=== PATIENT | male | born 1960 | race Hispanic/Latino ===

== ENCOUNTER 2017-12-08 17:22 | Inpatient (IN) | payer MEDICARE ==
[2017-12-08] MEDS ORDERED: Morphine 4 MG/ML VIAL ONE (18:05)
--- NOTE | 2017-12-08 18:17 | RAD ---
FRONTAL VIEW CHEST: CLINICAL HISTORY: Preoperative assessment. FINDINGS: There is no consolidation, effusion, or pneumothorax. The cardiac silhouette is normal in size. The re is mild osseous degenerative change. IMPRESSION: No focal consolidation. POS: YANELISH
[2017-12-08 18:29] LABS: Hemoglobin 12.5 g/dL (14.0-18.0); Mean Corpuscular HGB CONC 32.7 g/dL (32.0-36.0); Mean Corpuscular Hemoglobin 28.8 pg (27.0-31.0); Mean Corpuscular Volume 88.1 fl (80.0-94.0); Mean Platelet Volume 8.2 fL (7.4-10.4); Platelet Count 431 thou/uL (130-400); RBC Distribution Width 11.5 % (11.5-14.5); Red Blood Cell (RBC) Count 4.35 mill/uL (4.70-6.10); White Blood Cell (WBC) Count 28.9 thou/uL (4.8-10.8)
[2017-12-08 18:37] LABS: Lactic Acid 1.9 mmol/L (0.5-2.2)
[2017-12-08 18:39] LABS: INR-International Normal Ratio 1.3; PTT 34.9 SEC (22.9-36.1); Prothrombin Time 16.5 SEC (12.0-14.7)
[2017-12-08 18:42] LABS: CRP (Inflammatory) 28.4 mg/dL (= or < 0.5)
[2017-12-08 18:43] LABS: ALT (SGPT) 10 U/L (8-55); AST (SGOT) 8 U/L (5-34); Albumin 2.2 g/dL (3.5-5.0); Alkaline Phosphatase 86 U/L (40-150); Anion Gap 14 mmol/L (10-20); BUN (Urea Nitrogen) 23 mg/dL (8.4-25.7); Bilirubin, Total 0.4 mg/dL (0.2-1.2); Calc. Creatinine Clearance 0 mL/min (70-130); Calcium 8.3 mg/dL (7.8-10.44); Carbon Dioxide 19 mmol/L (22-29); Chloride 98 mmol/L (98-107); Estimated GFR-MDRD 48; Globulin 4.8 g/dL (2.4-3.5); Glucose 384 mg/dL (70-105); Sodium 127 mmol/L (136-145)
[2017-12-08 18:48] LABS: Band 11 % (5-11); Large Platelets SLIGHT; Lymphocytes 6 % (21-51); MDiff Complete? YES; Monocytes 4 % (0-10); Neutrophil 79 % (42-75); PLT Morphology Comment Appears Increased; Polychromasia SLIGHT = 2-3 cells (100X) (0-2/hpf)
[2017-12-08] MEDS ORDERED: Insulin Regular 300 UNITS/3 ML VIAL ONE (19:16)
--- NOTE | 2017-12-08 19:25 | CT ---
POST CONTRAST LEFT LOWER EXTREMITY CT: HISTORY: Evaluate for necrotizing fasciitis. Gangrene. COMPARISON: None. TECHNIQUE: Postcontrast soft tissue CT of the left leg and foot is performed. Reformatted images are submitted for interpretation. FINDINGS: Extensive vascular calcification. There is soft tissue swelling and subcutaneous emphysema involving the plantar surface of the left fo ot, at the level of the calcaneus. Edema and air extend into the medial as well as lateral aspect of the hindfoot. The midfoot and forefoot do not demonstrate any obvious drainable fluid collection. There is no abnormal soft tissue emphysema in the distal lower extremity, at the level of the tibia a nd fibula. There is minimal periosteal change involving the calcaneus, at the level of the aforementioned subcut aneous emphysema. No obvious destructive or erosive changes to imply osteomyelitis. The remaining o sseous structures of the left foot are intact. No evidence of periosteal reaction. No evidence of e rosive or destructive changes. No evidence of fracture. IMPRESSION: Subcutaneous emphysema and swelling involving the hindfoot soft tissues, compatible with cellulitis/n ecrotizing fasciitis. No CT evidence of osteomyelitis. POS: PPP
[2017-12-08] MEDS ORDERED: Sodium Chloride 0.9% 1,000 ML IV SCH (20:15)
[2017-12-08] MEDS ORDERED: Vancomycin HCl 500 MG in Sodium Chloride 0.9% 100 ML IVPB SCH (20:30)
[2017-12-08 20:42] LABS: Platelet Count 431 thou/uL (130-400)
[2017-12-08 20:48] LABS: D-Dimer Test 3.28 *mcg/mL (0.27-0.43)
--- NOTE | 2017-12-08 20:49 | PDOC.FPRHP ---
- History of Present Illness Chief Complaint: Left foot wound History of Present Illness: This is a 57 yo M w/hx of DM2, HLD, HTN, and diabetic neuropathy that was transferred to this facility from [place] with concern for necrotizing fasciitis secondary to a L heel diabetic foot ulcer. Per discussion with patient 's he was first evaluated for the would apprx 6 weeks ago where he was started on oral bactrim and keflex. He was also referred to a wound clinic in the [facility] where his was treated with a topical of some kind. She states that she has been caring for his would at home, however she was concerned about a worsening foul smell coming from the wound over the past few weeks. Today she her concern was enough that she had him evaluated at the ED. In the ED a CT found subcutaneous emphysema in the hind foot concerning for cellulitis vs necrotizing fasciitis. He was given Vanc and Zosyn - Allergies/Adverse Reactions Allergies Allergy/AdvReac Type Severity Reaction Status Date / Time No Known Allergies Allergy Verified 12/09/17 00:06 - Home Medications Medication Instructions Recorded Confirmed Type Atorvastatin Calcium [Lipitor] 20 mg PO DAILY 12/08/17 12/08/17 History Clopidogrel Bisulfate [Plavix] 75 mg PO DAILY 12/08/17 12/08/17 History Gabapentin 300 mg PO QAM 12/08/17 12/08/17 History Gabapentin 600 mg PO QPM 12/08/17 12/08/17 History Insulin Glargine,Hum.Rec.Anlog 30 units SC DAILY 12/08/17 12/08/17 History [Lantus] Lisinopril [Zestril] 20 mg PO DAILY 12/08/17 12/08/17 History traZODone HCl [Trazodone HCl] 50 mg PO QPM PRN 12/08/17 12/08/17 History Comments: Med list per over the phone - History PMHx: DM2 HLD HTN Diabetic neuropathy PSHx: FHx: Unk Social: Former smoker. 30 pack year hx Former drinker, unclear as to amount No recreational drug use - Review of Systems Eyes: denies: vision changes ENT: denies: nasal congestion Respiratory: denies: cough, congestion, shortness of breath Cardiovascular: denies: chest pain, palpitation Gastrointestinal: denies: nausea, vomiting Skin: reports: lesions (Ulcer on L heel). denies: rashes Musculoskeletal: reports: pain (Pain with pressure on ulcer) Neurological: denies: numbness, syncope Psychological: denies: anxiety, depression - Vital signs BP: 112/78 HR: 95 RR: 17 Tmax: 98.1 Pox: 97% on RA Wt: 74.8 kg - Physical Exam Constitutional: NAD, awake, alert and oriented HEENT: normocephalic and atraumatic, EOMI, no scleral icterus Neck: FROM, trachea midline Chest: no-tender to palpation Heart: RRR, normal S1/S2 Lungs: CTAB Abdomen: soft, non-tender, bowel sounds present Musculoskeletal: normal structure Neurological: no focal deficit Skin: good turgor -Skin: Large malodorous ulceration over left hindfoot. Heme/Lymphatic: no unusual bruising or bleeding, no purpura Psychiatric: normal mood and affect, good judgment and insight FMR H&P: Results - Labs Result Diagrams: 12/08/17 18:18 12/08/17 18:18 Lab results: WBC 28.9 thou/uL (4.8-10.8) H 12/08/17 18:18 Hgb 12.5 g/dL (14.0-18.0) L 12/08/17 18:18 Hct 38.3 % (42.0-52.0) L 12/08/17 18:18 MCV 88.1 fl (80.0-94.0) 12/08/17 18:18 Plt Count 431 thou/uL (130-400) H 12/08/17 18:18 Band Neuts % (Manual) 11 % (5-11) 12/08/17 18:18 ESR Westergren 121 mm/hr (Less than 20) 12/08/17 18:18 Sodium 127 mmol/L (136-145) L 12/08/17 18:18 Potassium 4.0 mmol/L (3.5-5.1) 12/08/17 18:18 Chloride 98 mmol/L (98-107) 12/08/17 18:18 Carbon Dioxide 19 mmol/L (22-29) L 12/08/17 18:18 BUN 23 mg/dL (8.4-25.7) 12/08/17 18:18 Creatinine 1.51 mg/dL (0.6-1.3) H 12/08/17 18:18 Glucose 384 mg/dL (70-105) H 12/08/17 18:18 Lactic Acid 1.9 mmol/L (0.5-2.2) 12/08/17 18:18 Calcium 8.3 mg/dL (7.8-10.44) 12/08/17 18:18 Total Bilirubin 0.4 mg/dL (0.2-1.2) 12/08/17 18:18 AST 8 U/L (5-34) 12/08/17 18:18 ALT 10 U/L (8-55) 12/08/17 18:18 Alkaline Phosphatase 86 U/L (40-150) 12/08/17 18:18 Creatine Kinase 125 U/L (30-200) 12/08/17 18:18 C-Reactive Protein 28.40 mg/dL (= or < 0.5) H 12/08/17 18:18 Serum Total Protein 7.0 g/dL (6.0-8.3) 12/08/17 18:18 Albumin 2.2 g/dL (3.5-5.0) L 12/08/17 18:18 Laboratory Tests 12/08/17 12/08/17 12/08/17 18:18 18:18 18:18 ESR Westergren 121 PT 16.5 H INR 1.3 APTT 34.9 Fibrinogen 1132 H Fibrin Degrad Products Normal Fibrin Degrad Prod, Qt Not Reportable D-Dimer 3.28 H C-Reactive Protein 28.40 H - EKG Interpretation EKG: NSR, no ST or T wave abnormalities - Radiology Interpretation CT scan - abdomen Status: report reviewed by me (OK emphysema with swelling c/w cellulitis or necrotizing fasciitis. No evidence of osteo) Chest x-ray Status: report reviewed by me (No accute process) FMR H&P: A/P - Problem List (1) Necrotizing soft tissue infection Current Visit: Yes Status: Acute Priority: High Code(s): M79.89 - OTHER SPECIFIED SOFT TISSUE DISORDERS (2) DM2 (diabetes mellitus, type 2) Current Visit: Yes Status: Chronic Priority: High Qualifiers: Diabetes mellitus termite technician insulin use: with mcc use Diabetes mellitus complication status: with skin complications Diabetes mellitus complication detail: with foot ulcer Qualified Code(s): E11.621 - Type 2 diabetes mellitus with foot ulcer; L97.509 - Non-pressure chronic ulcer of other part of unspecified foot with unspecified severity; L97.509 - Non- pressure chronic ulcer of other part of unspecified foot with unspecified severity; L97.509 - Non-pressure chronic ulcer of other part of unspecified foot with unspecified severity; L97.509 - Non-pressure chronic ulcer of other part of unspecified foot with unspecified severity; Z79.4 - termite technician (current) use of insulin; Z79.4 - MCFP (current) use of insulin; Z79.4 - MCFP ( current) use of insulin; Z79.4 - termite technician (current) use of insulin (3) HTN (hypertension) Current Visit: Yes Status: Chronic Priority: Medium Code(s): I10 - ESSENTIAL (PRIMARY) HYPERTENSION Qualifiers: Hypertension type: unspecified Qualified Code(s): I10 - Essential (primary ) hypertension (4) Diabetic neuropathy associated with type 2 diabetes mellitus Current Visit: Yes Status: Acute Priority: Medium Code(s): E11.40 - TYPE 2 DIABETES MELLITUS WITH DIABETIC NEUROPATHY, UNSP Qualifiers: Diabetes mellitus complication detail: diabetic polyneuropathy Qualified Code(s): E11.42 - Type 2 diabetes mellitus with diabetic polyneuropathy (5) HLD (hyperlipidemia) Current Visit: Yes Status: Chronic Priority: Low Code(s): E78.5 - HYPERLIPIDEMIA, UNSPECIFIED Qualifiers: Hyperlipidemia type: unspecified Qualified Code(s): E78.5 - Hyperlipidemia , unspecified (6) Hyperglycemia Current Visit: Yes Status: Acute Priority: Medium Code(s): R73.9 - HYPERGLYCEMIA, UNSPECIFIED (7) Thrombocytosis Current Visit: Yes Status: Acute Priority: Medium (8) KEV (acute kidney injury) Current Visit: Yes Status: Acute Priority: High Code(s): N17.9 - ACUTE KIDNEY FAILURE, UNSPECIFIED (9) Leukocytosis Current Visit: Yes Status: Acute Priority: Medium Code(s): D72.829 - ELEVATED WHITE BLOOD CELL COUNT, UNSPECIFIED (10) Hyponatremia Current Visit: Yes Status: Acute Priority: Medium Code(s): E87.1 - HYPO- OSMOLALITY AND HYPONATREMIA - Plan Necrotizing soft tissue infection - CV Surg, Dr Solorio, was consulted from the ED. Pt presentation was discussed with Dr Solorio. He plans to take the pt to the OR in the am. - Continue Vanc and add clinda and merrem. Vanc dosed based on CrCl, trough ordered before 4th dose - cultures collected. - IVF - Repeat CBC in am - NPO at midnight KEV vs CKD - IVF as above - Repeat BMP in am Hyponatremia - 127 corrects to 132 dt hyperglycemia - NS as above, recheck in am DM - restart home levemir - Moderate SSI - ACHS accucheck - low carb diet after surgery - Pt is currently hyperglycemic to 384, after discussing his insulin with his it is unclear what he is actually getting at home and when he gets it. Will start at 30 and adjust prn Thrombocytosis - this is most likely elevated due to acute reaction. repeat cbc in am Hyperglycemia - restart insulin and bc checks as above Ppx - Start lovenox after surgery Diet low carb after surgery Code Full Dispo: Pt is currently stable and has surgery planned for the am. Will work to manage comorbidities and follow surgical recommendation regarding infection FMR H&P: Upper Level - Pertinent history 57 year old male transferred from [place] due to apparent necrotizing fasciitis. Started as a foot ulcer 6 weeks ago. He failed an outpatient course of Bactrim and Keflex. He was receiving outpatient wound care. Over time, he has developed a bubble under the skin. His sent him to the ER today because the smell of his foot got so bad she couldnt stand it. Patient reports he had some pain which has now resolved with morphine. He denies fevers, chills, chest pain, dyspnea, abdominal pain, nausea, vomiting, and diarrhea. History obtained from patient and, via telephone, his . ER: 1 L NS and Zosyn in [place]. Vancomycin 1 g, 1 L NS, morphine 4 mg, and Novolin 10 mg in [facility] ED. PMH: DM2, HTN, HLD - Pertinent findings Vital Signs: HR 100 BP 146/83 RR 20 Temp 98.1 O2 sat 95% on RA Weight 74.8 kg General: NAD, AAOx4. Eyes: EOMI, PERRLA, nonicteric ENT: MMM, oropharynx clear CV: RRR, no m/r/g. Resp: CTAB, no wheezing, rales, or rhonchi. Breathing unlabored. Abdomen: NT, ND, no guarding/rebound. Extremities: LLE with ulceration of heel and subcutaneous gas and crepitus in posterior aspect. Neuro: CN II-XII intact. No focal deficits Psych: Mood and affect appropriate. Judgement and insight grossly intact. CXR: No acute processes CT LLE: Subcutaneous emphysema and hindfoot of LLE consistent with necrotizing fasciitis/cellulitis EKG: NSR. No ischemic changes - Plan Date/Time: 12/08/172048 I, Burak Agosto DO, have evaluated this patient and agree with findings/plan as outlined by pricing intern resident. Pertinent changes/additions are listed here. A/P: 57 year old male with DM2, HTN and HLD p/w: 1) Necrotizing soft tissue infection vs gas gangrene of left foot - Admit patient to IMCU. Start vancomycin, clindamycin, and meropenem. Continue iv fluids. General surgery consulted by Dr. Moore in ED surgeon money room teller does not do amputations. Dr. Moore spoke with Dr. Solorio in CV surgery who recommended antibiotics and plans to take him to surgery tomorrow. Dr. Snyder called Dr. Solorio to review patients case and confirm plan is for OR tomorrow. 2) DM2 - Accuchecks, SSI, and home Lantus 3) HTN - home meds 4) HLD - Hold home meds 5) Code Status - Full Attending Addendum - Attending Addendum Date/Time: 12/09/17 [id number] I personally evaluated the patient and discussed the management with Dr. Snyder and Surendra. I agree with and repeated the History, Examination, Assessment and Plan documented above with any addition or exceptions noted below. No edema of LLE, absent pulses, decreased sensation. Previously described wound , no crepitus or significant skin changes extending above ankle. TTP. Malodorous. Sepsis 2/2 wet gangrene/necrotizing cellulitis LLE. Antibiotics, surgical consultation, cultures drawn. Management of comorbidities as above.
[2017-12-08 20:51] LABS: Fibrinogen 1132 mg/dL (253-463)
[2017-12-08 21:06] LABS: FSP-Qualitative Normal (Normal)
[2017-12-08] MEDS ORDERED: MEROPENEM 1 GM/50 ML 1 GM in Premix Bag 1 BAG IVPB SCH ×2 (22:00→23:59)
[2017-12-08] MEDS ORDERED: Clindamycin/D5W 900 MG in Premix Bag 1 BAG IVPB SCH (22:00)
[2017-12-08] MEDS ORDERED: Ondansetron HCl/PF 4 MG/2 ML Vial IVP PRN (22:55)
[2017-12-08] MEDS ORDERED: Ondansetron ODT 4 MG TAB SL PRN (22:55)
[2017-12-08] MEDS ORDERED: Dextrose 5% in Water 1,000 ML IV PRN (23:02)
[2017-12-08] MEDS ORDERED: HumaLOG 300 UNITS/3 ML VIAL SC PRN (23:02)
[2017-12-08] MEDS ORDERED: Dextrose 50% Abboject 50 ML SYRINGE SLOW IVP PRN (23:02)
[2017-12-08 23:16] VITALS: BMI 21.7
[2017-12-08] MEDS: Sodium Chloride 0.9% 1,000 ML IV SCH (23:32)
[2017-12-09] MEDS: Clindamycin/D5W 900 MG in Premix Bag 1 BAG IVPB SCH ×3 (01:04→17:25)
[2017-12-09] MEDS ORDERED: Acetaminophen 500 MG TAB PO PRN (03:42)
[2017-12-09] MEDS ORDERED: Acetaminophen 650 MG/20.3 ML UDCUP PO PRN (03:48)
[2017-12-09] MEDS: Morphine 4 MG/ML VIAL SLOW IVP PRN ×2 (05:03→09:39)
[2017-12-09] MEDS: Sodium Chloride 0.9% 1,000 ML IV SCH ×2 (05:08→14:38)
[2017-12-09 05:48] LABS: Anion Gap 9 mmol/L (10-20); BUN (Urea Nitrogen) 21 mg/dL (8.4-25.7); Calc. Creatinine Clearance 56 mL/min (70-130); Calcium 8.2 mg/dL (7.8-10.44); Carbon Dioxide 21 mmol/L (22-29); Chloride 103 mmol/L (98-107); Estimated GFR-MDRD 52; Glucose 287 mg/dL (70-105); Potassium 3.7 mmol/L (3.5-5.1); Sodium 129 mmol/L (136-145)
[2017-12-09 06:11] LABS: Band 2 % (5-11); Hemoglobin 10.9 g/dL (14.0-18.0); Lymphocytes 12 % (21-51); MDiff Complete? YES; Mean Corpuscular HGB CONC 33.3 g/dL (32.0-36.0); Mean Corpuscular Hemoglobin 29.3 pg (27.0-31.0); Mean Platelet Volume 7.7 fL (7.4-10.4); Monocytes 12 % (0-10); Neutrophil 71 % (42-75); PLT Morphology Comment Appears Increased; Platelet Count 508 thou/uL (130-400); RBC Distribution Width 11.4 % (11.5-14.5); RBC Morphology Normal; Reactive Lymphocytes 3 % (0-10); Red Blood Cell (RBC) Count 3.73 mill/uL (4.70-6.10); White Blood Cell (WBC) Count 25.4 thou/uL (4.8-10.8)
--- NOTE | 2017-12-09 06:31 | PDOC.FM ---
- Subjective Subjective: Mr. Orellana denies any pain or discomfort. He will initially answer questions appropriately but then goes off on tangents and makes jokes. He denies any chest pain, shortness of breath. He is unable to tell us if he has any cardiac history but denies it. He does not know why he is on Plavix. He states that he lives in [place] but does not know the name of his doctor. He agrees to surgery and says "I am in your hands." Upon discussion with his , Macrina, she also agrees to surgery and believes it is the best thing for him. - Objective MAR Reviewed: Yes Vital Signs & Weight: Vital Signs (12 hours) Temp Pulse Resp BP Pulse Ox 12/09/17 04:05 98.3 F 88 16 131/72 98 12/09/17 00:07 99.8 F H 100 17 136/70 100 12/08/17 23:30 99.8 F H 100 17 99 12/08/17 22:40 98.7 F 99 18 138/79 99 Weight Weight 68.81 kg Result Diagrams: 12/09/17 05:28 12/09/17 05:28 <Livier Reed - Last Filed: 12/09/17 10:14> - Objective Vital Signs & Weight: Vital Signs (12 hours) Temp Pulse Pulse Pulse Resp BP BP 12/09/17 15:26 98.6 F 89 17 12/09/17 11:13 99.4 F 92 16 12/09/17 09:56 93 95 163/81 H 143/80 H 12/09/17 08:00 98.8 F 90 21 H 12/09/17 07:21 98.8 F 90 21 H BP Pulse Ox 12/09/17 15:26 145/84 H 100 12/09/17 11:13 143/80 H 97 12/09/17 09:56 12/09/17 08:00 97 12/09/17 07:21 150/87 H 97 Weight Weight 68.81 kg I&O: 12/08/17 12/09/17 12/10/17 06:59 06:59 06:59 Intake Total 860 Balance 860 Result Diagrams: 12/09/17 05:28 12/09/17 05:28 <Antoine Saldana - Last Filed: 12/09/17 16:22> Phys Exam - Physical Examination Constitutional: NAD poor hygeine, foul odor coming from wound HEENT: moist MMs, sclera anicteric Neck: no nodes, supple Respiratory: no wheezing, clear to auscultation bilateral Cardiovascular: RRR, no significant murmur Gastrointestinal: soft, non-tender, no distention, positive bowel sounds LLE with decubitus ulcer on heel and laterally, R BKA Neurological: non-focal, moves all 4 limbs decreased/absent sensation below L ankle Psychiatric: normal affect Deviation from normal: alert, verbose, oriented x2-3 when answering questions directly Deviation from normal: black eschar over entire L heel and on L lateral surface with clr drainage <Livier Reed - Last Filed: 12/09/17 10:14> Dx/Plan (1) Subcutaneous emphysema Code(s): T79.7XXA - TRAUMATIC SUBCUTANEOUS EMPHYSEMA, INITIAL ENCOUNTER Status : Acute (2) Diabetic skin ulcer Code(s): E11.622 - TYPE 2 DIABETES MELLITUS WITH OTHER SKIN ULCER; L98.499 - NON -PRESSURE CHRONIC ULCER OF SKIN OF SITES W UNSP SEVERITY Status: Acute (3) Insulin dependent diabetes mellitus Code(s): E11.9 - TYPE 2 DIABETES MELLITUS WITHOUT COMPLICATIONS; Z79.4 - MILLING MACHINE SET UP OPERATOR (CURRENT) USE OF INSULIN Status: Acute (4) KEV (acute kidney injury) Code(s): N17.9 - ACUTE KIDNEY FAILURE, UNSPECIFIED Status: Acute (5) Hyperglycemia Code(s): R73.9 - HYPERGLYCEMIA, UNSPECIFIED Status: Acute (6) Hyponatremia Code(s): E87.1 - HYPO-OSMOLALITY AND HYPONATREMIA Status: Acute (7) Leukocytosis Code(s): D72.829 - ELEVATED WHITE BLOOD CELL COUNT, UNSPECIFIED Status: Acute (8) HLD (hyperlipidemia) Code(s): E78.5 - HYPERLIPIDEMIA, UNSPECIFIED Status: Chronic QualifierTitle: Hyperlipidemia type: unspecified Qualified Code(s): E78.5 - Hyperlipidemia, unspecified (9) HTN (hypertension) Code(s): I10 - ESSENTIAL (PRIMARY) HYPERTENSION Status: Chronic QualifierTitle: Hypertension type: unspecified Qualified Code(s): I10 - Essential (primary) hypertension - Plan Plan: 1. Diabetic foot ulcer complicated by subcutaneous emphysema, loss of sensation , - Per CT, concerning for advanced cellulitis vs. necrotizing fascitis - Greatly appreciate Dr. Solorio's assistance - Plan for surgery later this morning - Continue vanc, meropenem, clinda - Wound and blood cultures pending - NPO 2. T2DM - On lantus at home, levemir while here 3. HTN - Home lisinopril once no longer NPO 4. HLD - Home atorvastatin once no longer NPO 5. Questionable history of CAD vs. PVD - Patient does not know why he is on Plavix - Will try to obtain records/discern who PCP is 6. KEV vs. CKD - Will monitor with gentle repletion 7. Diabetic neuropathy - Home gabapentin once tolerating PO PPX: Will need lovenox when approved post-op <Livier Reed - Last Filed: 12/09/17 10:14> Attending Addendum - Attending Addendum Date/Time: 12/09/17 1186 I personally evaluated the patient and discussed the management with Dr. Reed. Mr. Orellana is an unfortunate 57 year male with Insulin dependent Type 2 DM , and a Diabetic foot ulcer complicated by HTN, hyperlipidemia. He has subcutaneous emphysema, and severe diabetic peripheral neuropathy with loss of sensation and pulses below the Left ankle, indicating severe peripheral vascular disease with a prior Right BKA. The Left foot wound appears as described by Dr. Reed and has the odor of a animal. On his CT, there is concern for advanced cellulitis vs. necrotizing fascitis. The plan is for Dr. Solorio to take him for a distal lower leg amputation this morning, followed by a BK amputation if a few days. We will continue vanc, meropenem, and clindamycin. Wound and blood cultures are pending. I agree with the History, Examination, Assessment and Plan documented above. MD Diana <Antoine Saldana - Last Filed: 12/09/17 16:22>
[2017-12-09] MEDS ORDERED: Insulin Detemir 100 UNITS/ML 30 UNITS in Pre-Filled Syringe 1 EACH SC SCH (09:00)
--- NOTE | 2017-12-09 09:00 | CON ---
DATE OF CONSULTATION: 12/09/2017 HISTORY OF PRESENT ILLNESS: This is a 57-year-old diabetic gentleman transferred from the [facility]. The patient has evidently been going to Wound Care for ulcerations on his left foot and heel. D ue to foul smelling wound over the past several weeks he presented to the [place] ER yesterday and was transferred here. PAST MEDICAL HISTORY: Limited at this time as I tried to talk to him through a prison librarian phone, but his fund of knowledge is rather limited. He evidently had a right leg amputation in [place] in the past. He denies any heart disease, but does have hypertension and diabetes mellitus. PAST SURGICAL HISTORY: Otherwise negative and he specifically denies any previous balloon, stent or bypass work. SOCIAL HISTORY: The patient does have a smoking and drinking history and says he will smoke now if h e has a cigarette. MEDICATIONS: At home include trazodone, gabapentin, Plavix, Lipitor, lisinopril, Lantus insulin. ALLERGIES: None known. PHYSICAL EXAMINATION: GENERAL: He is a little , unshaven. NECK: Left carotid bruit. CARDIAC: Regular rate. LUNGS: Clear to auscultation. ABDOMEN: Soft, nontender. EXTREMITIES: He has palpable femoral and popliteal pulses. He has no swelling in his left leg and h as a right [id number] amputation. He has foul smelling gangrenous changes in his left heel as we ll as a large eschar over the dorsum of his foot. LABORATORY: White count is greater than 20,000. I believe the patient needs a guillotine amputation today of his left foot and then a formal attempt at BK amputation once the wound is cleaned up. I have discussed this with the patient via prison librarian and have been unable to contact his . Mireille gibbons for informed consent.
[2017-12-09] MEDS: Meropenem 1 GM in Sodium Chloride 0.9% 100 ML IVPB SCH ×3 (09:33→23:40)
[2017-12-09] MEDS ORDERED: Fentanyl 100 MCG/2 ML VIAL ONE ×2 (10:47)
[2017-12-09] MEDS ORDERED: Phenylephrine HCL 10 MG/ML VIAL ONE (10:47)
[2017-12-09] MEDS ORDERED: Promethazine HCl 25 MG/ML VIAL ONE (10:56)
[2017-12-09] MEDS ORDERED: Bupivacaine/Epinephrine 0.25% 30 ML VIAL ONE (11:27)
[2017-12-09] MEDS ORDERED: Promethazine HCl 25 MG/ML VIAL SLOW IVP PRN (12:04)
[2017-12-09] MEDS ORDERED: Ondansetron HCl/PF 4 MG/2 ML Vial IVP PRN (12:04)
[2017-12-09] MEDS ORDERED: Ketorolac Tromethamine 30 MG/ML VIAL IVP PRN (12:04)
[2017-12-09] MEDS ORDERED: Morphine Sulfate 2 MG/ML SYRINGE SLOW IVP PRN (12:04)
--- NOTE | 2017-12-09 13:16 | OP ---
PREOPERATIVE DIAGNOSIS: Gangrene, left foot with necrotizing soft tissue infection. PROCEDURE: Guillotine amputation left distal leg. SURGEON: Hugh Solorio M.D. ANESTHESIA: General. ESTIMATED BLOOD LOSS: 100 mL. PROCEDURE IN DETAIL: After adequate anesthesia had been obtained, prepping and draping circumferenti al incision was made around the supramalleolar area. Following division of soft tissues and ligating the vascular bundles, the tibia and fibula were transected. Dressings were applied and the patient is to be taken to the recovery room.
[2017-12-09] MEDS ORDERED: PHENYLEPHRINE-NS 100 MCG/ML 10 ML SYRINGE ONE (13:57)
[2017-12-09] MEDS ORDERED: ePHEDrine/0.9% NaCl/PF SYRINGE 50 mg/10 ml ONE (13:57)
[2017-12-09] MEDS ORDERED: Lidocaine 1% PF 5 ML VIAL ONE (13:57)
[2017-12-09] MEDS ORDERED: PROPOFOL 200 MG/20 ML VIAL ONE (13:57)
[2017-12-09] MEDS ORDERED: Vancomycin HCl 1.5 GM in Sodium Chloride 0.9% 250 ML 300 ML IVPB SCH (19:00)
[2017-12-09] MEDS: Vancomycin HCl 1.25 GM in Sodium Chloride 0.9% 250 ML 250 ML IVPB SCH (20:58)
[2017-12-09] MEDS: Insulin Detemir 100 UNITS/ML 15 UNITS in Pre-Filled Syringe SC SCH (23:39)
[2017-12-10] MEDS: Clindamycin/D5W 900 MG in Premix Bag 1 BAG IVPB SCH ×4 (01:34→20:28)
[2017-12-10] MEDS: Sodium Chloride 0.9% 1,000 ML IV SCH (03:47)
[2017-12-10 06:59] LABS: #Eosinphils 0.3 thou/uL (0.0-0.7); #Lymphocytes 2.2 thou/uL (1.20-3.40); #Monocytes 0.7 thou/uL (0.11-0.59); #Neutrophils 6.2 thou/uL (1.40-6.50); %Basophils 0.4 % (0.0-1.0); %Eosinophils 3.5 % (0.0-10.0); %Lymphocytes 23.4 % (21.0-51.0); %Monocytes 7.8 % (0.0-10.0); Hemoglobin 10.5 g/dL (14.0-18.0); Mean Corpuscular HGB CONC 33.3 g/dL (32.0-36.0); Mean Corpuscular Hemoglobin 29.4 pg (27.0-31.0); Mean Corpuscular Volume 88.2 fl (80.0-94.0); Mean Platelet Volume 7.3 fL (7.4-10.4); Platelet Count 513 thou/uL (130-400); RBC Distribution Width 11.6 % (11.5-14.5); Red Blood Cell (RBC) Count 3.58 mill/uL (4.70-6.10); White Blood Cell (WBC) Count 9.5 thou/uL (4.8-10.8)
[2017-12-10 07:16] LABS: Anion Gap 10 mmol/L (10-20); BUN (Urea Nitrogen) 20 mg/dL (8.4-25.7); Calc. Creatinine Clearance 71 mL/min (70-130); Calcium 7.7 mg/dL (7.8-10.44); Carbon Dioxide 20 mmol/L (22-29); Chloride 108 mmol/L (98-107); Estimated GFR-MDRD 69; Glucose 152 mg/dL (70-105); Potassium 3.3 mmol/L (3.5-5.1); Sodium 135 mmol/L (136-145)
[2017-12-10] MEDS ORDERED: Lisinopril 20 MG TAB PO SCH (09:00)
--- NOTE | 2017-12-10 10:18 | PDOC.FM ---
- Subjective Subjective: SAL overnight, VSS, afebrile. Going for second procedure for amputation this AM. Pain controlled w/ PO pain meds. No new complaints. - Objective MAR Reviewed: Yes Vital Signs & Weight: Vital Signs (12 hours) Temp Pulse Resp BP Pulse Ox 12/10/17 08:06 98.4 F 78 16 176/91 H 99 12/10/17 08:00 98.4 F 78 16 12/10/17 03:47 98.4 F 77 16 147/79 H 98 12/09/17 23:57 98.0 F 76 16 165/96 H 99 Weight Weight 68.81 kg I&O: 12/09/17 12/10/17 12/11/17 06:59 06:59 06:59 Intake Total 860 Balance 860 Result Diagrams: 12/10/17 06:48 12/10/17 06:48 <Michael Herrera - Last Filed: 12/10/17 10:16> - Objective Vital Signs & Weight: Vital Signs (12 hours) Temp Pulse Resp BP Pulse Ox 12/10/17 08:06 98.4 F 78 16 176/91 H 99 12/10/17 08:00 98.4 F 78 16 12/10/17 03:47 98.4 F 77 16 147/79 H 98 12/09/17 23:57 98.0 F 76 16 165/96 H 99 Weight Weight 68.81 kg I&O: 12/09/17 12/10/17 12/11/17 06:59 06:59 06:59 Intake Total 860 Balance 860 Result Diagrams: 12/10/17 06:48 12/10/17 06:48 <Antoine Saldana - Last Filed: 12/10/17 10:29> Phys Exam - Physical Examination Constitutional: NAD HEENT: PERRLA, moist MMs Neck: no nodes Respiratory: no wheezing, clear to auscultation bilateral Cardiovascular: RRR, no significant murmur Gastrointestinal: soft, non-tender right AKA and left ankle bandaged s/p amputation Neurological: moves all 4 limbs Psychiatric: normal affect, A&O x 3 <Michael Herrera - Last Filed: 12/10/17 10:16> Dx/Plan (1) Necrotizing soft tissue infection Code(s): M79.89 - OTHER SPECIFIED SOFT TISSUE DISORDERS Status: Acute Plan: POD #1 from initial amputation yesterday w/ plans for the remainder per CV surgery this AM Cont. w/ abx Prelim Cx growing proteus (2) DM2 (diabetes mellitus, type 2) Status: Chronic QualifierTitle: Diabetes mellitus assurance senior manager insurance insulin use: with mcc use Diabetes mellitus complication status: with skin complications Diabetes mellitus complication detail: with foot ulcer Qualified Code(s): E11.621 - Type 2 diabetes mellitus with foot ulcer; L97.509 - Non-pressure chronic ulcer of other part of unspecified foot with unspecified severity; L97.509 - Non- pressure chronic ulcer of other part of unspecified foot with unspecified severity; L97.509 - Non-pressure chronic ulcer of other part of unspecified foot with unspecified severity; L97.509 - Non-pressure chronic ulcer of other part of unspecified foot with unspecified severity; Z79.4 - long-term (current) use of insulin; Z79.4 - long-term (current) use of insulin; Z79.4 - long-term ( current) use of insulin; Z79.4 - long-term (current) use of insulin Plan: Stable Cont. w/ current regimen (3) HLD (hyperlipidemia) Code(s): E78.5 - HYPERLIPIDEMIA, UNSPECIFIED Status: Chronic QualifierTitle: Hyperlipidemia type: unspecified Qualified Code(s): E78.5 - Hyperlipidemia, unspecified Plan: Stable Cont. w/ current regimen (4) HTN (hypertension) Code(s): I10 - ESSENTIAL (PRIMARY) HYPERTENSION Status: Chronic QualifierTitle: Hypertension type: unspecified Qualified Code(s): I10 - Essential (primary) hypertension Plan: Some episodes of elevated BPs overnight Will cont. w/ home meds and PRNs as needed Likely confounded 2/2 post op pain Will cont. to monitor <Michael Herrera - Last Filed: 12/10/17 10:16> Attending Addendum - Attending Addendum Date/Time: 12/10/17 1025 I personally evaluated the patient and discussed the management with Dr. Christy Herrera. I agree with the History, Examination, Assessment and Plan documented above with any addition or exceptions noted below. His only concern is that his leg is "not straight," this morning. Pain is mild and controlled with meds. Dressing is dry. Hypertensive BP 176/91. Hb 10.5. A: Stable for planned BK amputation later today with Dr. Solorio. P: Will continue to follow for DM, CKD, KEV, CAD and HLD post-op. MD Diana <Antoine Saldana - Last Filed: 12/10/17 10:29>
[2017-12-10] MEDS: Atorvastatin Calcium 20 MG TAB PO SCH (11:57)
[2017-12-10] MEDS: Meropenem 1 GM in Sodium Chloride 0.9% 100 ML IVPB SCH ×3 (11:57→21:17)
[2017-12-10] MEDS: Insulin Detemir 100 UNITS/ML 15 UNITS in Pre-Filled Syringe SC SCH ×2 (11:58→21:09)
[2017-12-10] MEDS ORDERED: Promethazine HCl 25 MG/ML VIAL ONE (13:14)
[2017-12-10] MEDS ORDERED: Fentanyl 100 MCG/2 ML VIAL ONE ×3 (13:14→18:22)
[2017-12-10] MEDS ORDERED: Norepinephrine 4 MG/4 ML VIAL ONE (13:15)
[2017-12-10] MEDS ORDERED: Midazolam HCl 2 mg/2 ml Vial ONE (15:42)
[2017-12-10] MEDS ORDERED: Fentanyl 250 MCG/5 ML VIAL ONE (15:42)
[2017-12-10] MEDS ORDERED: PROPOFOL 200 MG/20 ML VIAL ONE (15:48)
[2017-12-10] MEDS ORDERED: Glycopyrrolate 0.2 MG/ML 5 ML SYRINGE ONE (15:48)
[2017-12-10] MEDS ORDERED: Lidocaine 1% PF 5 ML VIAL ONE (15:48)
[2017-12-10] MEDS ORDERED: Morphine Sulfate 2 MG/ML SYRINGE SLOW IVP PRN (16:41)
[2017-12-10] MEDS ORDERED: Promethazine HCl 25 MG/ML VIAL SLOW IVP PRN (16:41)
[2017-12-10] MEDS ORDERED: Ondansetron HCl/PF 4 MG/2 ML Vial IVP PRN (16:41)
[2017-12-10] MEDS ORDERED: HYDROmorphone 2 MG/ML VIAL SLOW IVP PRN (16:41)
[2017-12-10] MEDS ORDERED: Morphine 4 MG/ML VIAL ONE (18:06)
[2017-12-10] MEDS ORDERED: Fentanyl 100 MCG/2 ML VIAL SLOW IVP PRN (18:50)
[2017-12-10] MEDS: Vancomycin HCl 1.25 GM in Sodium Chloride 0.9% 250 ML 250 ML IVPB SCH (21:07)
--- NOTE | 2017-12-10 21:33 | OP ---
PREOPERATIVE DIAGNOSIS: Status post guillotine amputation of left lower leg. PROCEDURE: Left BKA. SURGEON: Dr. Solorio. ANESTHESIA: General. ESTIMATED BLOOD LOSS: 150 mL. PROCEDURE IN DETAIL: After adequate anesthesia had been obtained, patient was prepped and draped. P osterior flap incision was made. Flap was created posteriorly, following which tibia and fibula were divided with Gigli saw and rib jazlyn respectively. Specimen was removed from the field. Hemostasi s was obtained and then irrigation carried out. The bone edges were smoothed with a rasp, following which Vicryl sutures in a [id number] fashion interrupted were used to reapproximate fascia over the tibia. Skin was closed with belkis. Dressings applied and the patient is to be taken to the re covery room.
[2017-12-10] MEDS: HYDROcodone/Acetaminophen 5/325 mg Tablet PO PRN (21:44)
[2017-12-10] MEDS ORDERED: hydrALAZINE 20 MG/ML VIAL SLOW IVP PRN (22:06)
[2017-12-11] MEDS: HYDROcodone/Acetaminophen 5/325 mg Tablet PO PRN ×2 (01:30→18:00)
[2017-12-11] MEDS: Clindamycin/D5W 900 MG in Premix Bag 1 BAG IVPB SCH ×3 (03:30→20:30)
[2017-12-11] MEDS: Sodium Chloride 0.9% 1,000 ML IV SCH (04:00)
[2017-12-11] MEDS: Meropenem 1 GM in Sodium Chloride 0.9% 100 ML IVPB SCH ×3 (04:55→21:08)
[2017-12-11 08:03] LABS: Anion Gap 13 mmol/L (10-20); BUN (Urea Nitrogen) 19 mg/dL (8.4-25.7); Calc. Creatinine Clearance 71 mL/min (70-130); Calcium 7.9 mg/dL (7.8-10.44); Carbon Dioxide 16 mmol/L (22-29); Chloride 110 mmol/L (98-107); Estimated GFR-MDRD 69; Glucose 178 mg/dL (70-105); Potassium 3.7 mmol/L (3.5-5.1); Sodium 135 mmol/L (136-145)
[2017-12-11 08:10] LABS: #Eosinphils 0.1 thou/uL (0.0-0.7); #Lymphocytes 1.8 thou/uL (1.20-3.40); #Monocytes 0.9 thou/uL (0.11-0.59); #Neutrophils 9.8 thou/uL (1.40-6.50); %Basophils 0.3 % (0.0-1.0); %Eosinophils 1.1 % (0.0-10.0); %Lymphocytes 14.3 % (21.0-51.0); %Monocytes 7.2 % (0.0-10.0); %Neutrophils 77.1 % (42.0-75.0); Hemoglobin 10.4 g/dL (14.0-18.0); Mean Corpuscular HGB CONC 33.3 g/dL (32.0-36.0); Mean Corpuscular Hemoglobin 30.1 pg (27.0-31.0); Mean Corpuscular Volume 90.7 fl (80.0-94.0); Mean Platelet Volume 8.5 fL (7.4-10.4); Platelet Count 518 thou/uL (130-400); RBC Distribution Width 11.8 % (11.5-14.5); Red Blood Cell (RBC) Count 3.46 mill/uL (4.70-6.10); White Blood Cell (WBC) Count 12.7 thou/uL (4.8-10.8)
[2017-12-11 08:35] LABS: Vancomycin, Trough 24.9 ug/mL
[2017-12-11] MEDS ORDERED: Vancomycin HCl 1 GM in Sodium Chloride 0.9% 250 ML 250 ML IVPB SCH (08:45)
[2017-12-11] MEDS ORDERED: Lisinopril 10 MG TAB PO SCH (09:00)
--- NOTE | 2017-12-11 09:00 | PDOC.FM ---
- Subjective Subjective: SAL overnight, POD#1 L-BKA. Pain controlled w/ PO pain medications. VSS, afebrile. - Objective MAR Reviewed: Yes Vital Signs & Weight: Vital Signs (12 hours) Temp Pulse Resp BP BP Pulse Ox 12/11/17 07:26 91 14 158/89 H 98 12/11/17 05:03 99.0 F 91 18 137/76 99 12/11/17 00:00 98.8 F 92 18 163/94 H 99 12/10/17 23:35 92 177/102 H Weight Weight 68.81 kg I&O: 12/10/17 12/11/17 12/12/17 06:59 06:59 06:59 Intake Total 1000 Output Total 350 Balance 650 Result Diagrams: 12/11/17 03:30 12/11/17 03:30 <Michael Herrera - Last Filed: 12/11/17 08:56> - Objective Vital Signs & Weight: Vital Signs (12 hours) Temp Pulse Resp BP BP Pulse Ox 12/11/17 09:23 158/89 H 12/11/17 09:21 91 158/89 H 12/11/17 07:26 91 14 158/89 H 98 12/11/17 05:03 99.0 F 91 18 137/76 99 12/11/17 00:00 98.8 F 92 18 163/94 H 99 12/10/17 23:35 92 177/102 H Weight Weight 68.81 kg I&O: 12/10/17 12/11/17 12/12/17 06:59 06:59 06:59 Intake Total 1000 Output Total 350 Balance 650 Result Diagrams: 12/11/17 03:30 12/11/17 03:30 <Antoine Saldana - Last Filed: 12/11/17 09:51> Phys Exam - Physical Examination Constitutional: NAD HEENT: PERRLA, moist MMs Neck: no nodes Respiratory: no wheezing, clear to auscultation bilateral Cardiovascular: RRR, no significant murmur Gastrointestinal: soft, non-tender, no distention, positive bowel sounds L-LE bandaged w/ brace. CDI Neurological: non-focal, moves all 4 limbs Psychiatric: A&O x 3 <Michael Herrera - Last Filed: 12/11/17 08:56> Dx/Plan (1) Necrotizing soft tissue infection Code(s): M79.89 - OTHER SPECIFIED SOFT TISSUE DISORDERS Status: Acute Plan: POD #1 from L-BKA Path from initial wound showing gangrenous tissue and prelim cx growing proteus Sensitivities pending. However, this should be covered w/ current abx regimen ( Vanc, clinda, meropenem) Cont. w/ abx (2) DM2 (diabetes mellitus, type 2) Status: Chronic QualifierTitle: Diabetes mellitus nursing home insulin use: with intermediate card tender use Diabetes mellitus complication status: with skin complications Diabetes mellitus complication detail: with foot ulcer Qualified Code(s): E11.621 - Type 2 diabetes mellitus with foot ulcer; L97.509 - Non-pressure chronic ulcer of other part of unspecified foot with unspecified severity; L97.509 - Non- pressure chronic ulcer of other part of unspecified foot with unspecified severity; L97.509 - Non-pressure chronic ulcer of other part of unspecified foot with unspecified severity; L97.509 - Non-pressure chronic ulcer of other part of unspecified foot with unspecified severity; Z79.4 - truck terminal manager (current) use of insulin; Z79.4 - truck terminal manager (current) use of insulin; Z79.4 - truck terminal manager ( current) use of insulin; Z79.4 - truck terminal manager (current) use of insulin Plan: BG elevatd over ideal range <180 in setting of infection Has only gotten 3U of SSI since admission. However, interrupted checks and NPO in setting of surgeries x2 Will monitor BG today and plan to increase long acting pending SSI usage (3) HLD (hyperlipidemia) Code(s): E78.5 - HYPERLIPIDEMIA, UNSPECIFIED Status: Chronic QualifierTitle: Hyperlipidemia type: unspecified Qualified Code(s): E78.5 - Hyperlipidemia, unspecified Plan: Stable Cont. w/ current regimen (4) HTN (hypertension) Code(s): I10 - ESSENTIAL (PRIMARY) HYPERTENSION Status: Chronic QualifierTitle: Hypertension type: unspecified Qualified Code(s): I10 - Essential (primary) hypertension Plan: Some episodes of elevated BPs overnight requiring PRN hydralazine Will cont. w/ home meds and PRNs as needed Add Norvasc 5 mg for improved control Will cont. to monitor <Michael Herrera K - Last Filed: 12/11/17 08:56> Attending Addendum - Attending Addendum Date/Time: 12/11/17945 I personally evaluated the patient and discussed the management with Dr. CECE Herrera. I agree with the History, Examination, Assessment and Plan documented above with any addition or exceptions noted below. His only complaint is he is hungry and has not received a brkfst tray. Pain controlled. A: POD #2 Left BKA for severe peripheral vascular disease and ischemic ulcers with dry gangrene. Insulin dependent DM2. HTN not at goal, Hyperlipidemia. P: Adjust insulin after glucose trends. Start Norvasc 5. Follow. MD Diana <Antoine Saldana - Last Filed: 12/11/17 09:51>
[2017-12-11] MEDS: Amlodipine 5 MG TAB PO SCH (09:21)
[2017-12-11] MEDS: Atorvastatin Calcium 20 MG TAB PO SCH (09:23)
[2017-12-11] MEDS: Insulin Detemir 100 UNITS/ML 15 UNITS in Pre-Filled Syringe SC SCH ×2 (09:23→20:34)
--- NOTE | 2017-12-11 11:16 | PQF ---
DATE: 12-11-17 ATTN: DR. KLEBER AZAR Please exercise your independent, professional judgment in responding to the clarification form. Clinical indicators are provided on the bottom of this form for your review Please check appropriate box(s) to clarify if the following diagnosis has been ruled in or ruled out: SEPSIS [ x ] Ruled in diagnosis [ x ] Continue to treat [ ] Resolved [ ] Ruled out diagnosis [ ] Other diagnosis [ ] Unable to determine In addition, please specify: Present on Admission (POA): [ x ] Yes [ ] No [ ] Unable to determine For continuity of documentation, please document condition throughout progress notes and discharge summary. Thank You. CLINICAL INDICATORS - SIGNS / SYMPTOMS / LABS WBC: 12-08-17: 28.9 12-09-17: 25.4 12-10-17: 9.5 12-11-17: 12.7 TEMP: 12-08-17: 99.8 12-09-17: 99.8, 99.4 PULSE: (ER) 95, 96 12-08-17: 100 12-09-17: 100 CRP: 12-08-17: 28.40 H&P: SEPSIS 2/2 WET GANGRENE/NECROTIZING CELLULITIS LLE RISK FACTORS: H&P: SEPSIS 2/2 WET GANGRENE/NECROTIZING CELLULITIS LLE, HX OF DM, HTN TREATMENTS: H&P: AMPUTATION PER DR. RODRIGUEZ, ([facility]) CLEOCIN, MERREM, VANCOMYCIN , IVF (This form is maintained as a part of the permanent medical record) 2014 [employer]. All Rights Reserved MAHIN [email or web address] Office: [phone] [facility]
[2017-12-11] MEDS: Vancomycin HCl 1 GM in Premix Bag 1 BAG IVPB SCH (12:19)
[2017-12-11] MEDS: HumaLOG 300 UNITS/3 ML VIAL SC PRN (16:26)
[2017-12-11] MEDS ORDERED: Lisinopril 20 MG TAB PO SCH (18:26)
[2017-12-11] MEDS ORDERED: Vancomycin HCl 1 GM in Premix Bag 1 BAG IVPB SCH (20:00)
[2017-12-12] MEDS: HYDROcodone/Acetaminophen 5/325 mg Tablet PO PRN ×4 (00:13→20:20)
[2017-12-12] MEDS: Vancomycin HCl 1 GM in Premix Bag 1 BAG IVPB SCH (00:14)
[2017-12-12] MEDS: Clindamycin/D5W 900 MG in Premix Bag 1 BAG IVPB SCH (04:24)
[2017-12-12] MEDS: Meropenem 1 GM in Sodium Chloride 0.9% 100 ML IVPB SCH (05:19)
[2017-12-12 05:47] LABS: #Eosinphils 0.1 thou/uL (0.0-0.7); #Monocytes 0.8 thou/uL (0.11-0.59); #Neutrophils 7.8 thou/uL (1.40-6.50); %Basophils 0.1 % (0.0-1.0); %Eosinophils 1.2 % (0.0-10.0); %Lymphocytes 18.4 % (21.0-51.0); %Monocytes 7.6 % (0.0-10.0); %Neutrophils 72.6 % (42.0-75.0); Hemoglobin 9.7 g/dL (14.0-18.0); Mean Corpuscular HGB CONC 33.7 g/dL (32.0-36.0); Mean Corpuscular Hemoglobin 29.6 pg (27.0-31.0); Mean Corpuscular Volume 87.9 fl (80.0-94.0); Mean Platelet Volume 7.2 fL (7.4-10.4); Platelet Count 512 thou/uL (130-400); RBC Distribution Width 11.7 % (11.5-14.5); Red Blood Cell (RBC) Count 3.26 mill/uL (4.70-6.10); White Blood Cell (WBC) Count 10.7 thou/uL (4.8-10.8)
[2017-12-12 06:01] LABS: Anion Gap 7 mmol/L (10-20); BUN (Urea Nitrogen) 14 mg/dL (8.4-25.7); Calc. Creatinine Clearance 90 mL/min (70-130); Calcium 7.7 mg/dL (7.8-10.44); Carbon Dioxide 21 mmol/L (22-29); Chloride 108 mmol/L (98-107); Estimated GFR-MDRD 90; Glucose 94 mg/dL (70-105); Potassium 3.3 mmol/L (3.5-5.1); Sodium 133 mmol/L (136-145)
[2017-12-12] MEDS ORDERED: Potassium Chloride 20 MEQ TAB PO SCH (06:30)
[2017-12-12] MEDS: Atorvastatin Calcium 20 MG TAB PO SCH (08:16)
[2017-12-12] MEDS ORDERED: Insulin Detemir 100 UNITS/ML 17 UNITS in Pre-Filled Syringe 1 EACH SC SCH (09:00)
--- NOTE | 2017-12-12 09:20 | PDOC.FM ---
- Subjective Subjective: SAL overnight, VSS, afebrile. Pain controlled w/ PO pain meds. - Objective MAR Reviewed: Yes Vital Signs & Weight: Vital Signs (12 hours) Temp Pulse Resp BP BP Pulse Ox 12/12/17 08:16 162/87 H 12/12/17 07:43 97.7 F 78 16 162/87 H 98 12/12/17 04:33 98.4 F 87 15 172/84 H 97 12/12/17 00:39 98.5 F 82 15 163/77 H 98 Weight Weight 68.81 kg I&O: 12/11/17 12/12/17 12/13/17 06:59 06:59 06:59 Intake Total 1000 1930 Output Total 350 875 Balance 650 1055 Result Diagrams: 12/12/17 05:01 12/12/17 05:01 <Michael Herrera - Last Filed: 12/12/17 09:15> - Objective Vital Signs & Weight: Vital Signs (12 hours) Temp Pulse Resp BP BP Pulse Ox 12/12/17 11:50 98.3 F 72 16 133/75 99 12/12/17 10:38 75 162/87 H 12/12/17 08:16 162/87 H 12/12/17 07:43 97.7 F 78 16 162/87 H 98 12/12/17 04:33 98.4 F 87 15 172/84 H 97 Weight Weight 68.81 kg I&O: 12/11/17 12/12/17 12/13/17 06:59 06:59 06:59 Intake Total 1000 1930 Output Total 350 875 Balance 650 1055 Result Diagrams: 12/12/17 05:01 12/12/17 05:01 <Antoine Saldana - Last Filed: 12/12/17 15:56> Phys Exam - Physical Examination Constitutional: NAD HEENT: PERRLA, moist MMs Respiratory: no wheezing, clear to auscultation bilateral Cardiovascular: RRR, no significant murmur Gastrointestinal: soft, non-tender, no distention, positive bowel sounds Musculoskeletal: no edema b/l BKA. Wound CDI. in knee immobilizer Neurological: moves all 4 limbs Psychiatric: normal affect, A&O x 3 Skin: cap refill <2 seconds <Michael Herrera - Last Filed: 12/12/17 09:15> Dx/Plan (1) Necrotizing soft tissue infection Code(s): M79.89 - OTHER SPECIFIED SOFT TISSUE DISORDERS Status: Acute Plan: POD #2 from L-BKA Path from initial wound showing gangrenous tissue and cx growing proteus sensitive to levaquin. D/c IV abx and start PO levaquin Cleared from CV surgery for d/c to inpatient rehab (2) DM2 (diabetes mellitus, type 2) Status: Chronic QualifierTitle: Diabetes mellitus jail insulin use: with termite inspector use Diabetes mellitus complication status: with skin complications Diabetes mellitus complication detail: with foot ulcer Qualified Code(s): E11.621 - Type 2 diabetes mellitus with foot ulcer; L97.509 - Non-pressure chronic ulcer of other part of unspecified foot with unspecified severity; L97.509 - Non- pressure chronic ulcer of other part of unspecified foot with unspecified severity; L97.509 - Non-pressure chronic ulcer of other part of unspecified foot with unspecified severity; L97.509 - Non-pressure chronic ulcer of other part of unspecified foot with unspecified severity; Z79.4 - [facility] (current) use of insulin; Z79.4 - termination clerk (current) use of insulin; Z79.4 - [facility] ( current) use of insulin; Z79.4 - [facility] (current) use of insulin Plan: BG elevatd over ideal range <180 yesterday increase AM levemir to 17U and 15U HS Will continue to monitor (3) HLD (hyperlipidemia) Code(s): E78.5 - HYPERLIPIDEMIA, UNSPECIFIED Status: Chronic QualifierTitle: Hyperlipidemia type: unspecified Qualified Code(s): E78.5 - Hyperlipidemia, unspecified Plan: Stable Cont. w/ current regimen (4) HTN (hypertension) Code(s): I10 - ESSENTIAL (PRIMARY) HYPERTENSION Status: Chronic QualifierTitle: Hypertension type: unspecified Qualified Code(s): I10 - Essential (primary) hypertension Plan: cont. Norvasc 5 mg for improved control and increase lisinopril dose Will cont. to monitor <Michael Herrera K - Last Filed: 12/12/17 09:15> Attending Addendum - Attending Addendum Date/Time: 12/12/17 4034 I personally evaluated the patient and discussed the management with Dr. Christy Herrera. I agree with the History, Examination, Assessment and Plan documented above with any addition or exceptions noted below. His BP is under improved control with addition of Norvasc 5 mg, although not yet at goal. He is stable for transfer to Rehab once arrangements can be made, hopefully later today. MD Diana. <Antoine Saldana - Last Filed: 12/12/17 15:56>
[2017-12-12] MEDS: Amlodipine 5 MG TAB PO SCH (10:38)
[2017-12-12] MEDS: HumaLOG 300 UNITS/3 ML VIAL SC PRN (13:53)
[2017-12-12 20:16] VITALS: BP 167/96; TEMP 98.1
[2017-12-12] MEDS ORDERED: Insulin Detemir 100 UNITS/ML 15 UNITS in Pre-Filled Syringe 1 EACH SC SCH (21:00)
--- NOTE | 2017-12-15 08:14 | DIS-2 ---
ADMISSION DATE: 12/08/2017 DISCHARGE DATE: 12/12/2017 ADMITTING ATTENDING: Dr. Michael Amezcua. DISCHARGE ATTENDING: Dr. Antoine Saldana. RESIDENT: Dr. Michael Herrera. CONSULTATIONS: Dr. Solorio, Cardiovascular Surgery. PROCEDURES: 1. Left guillotine amputation of the hindfoot. 2. Left BKA. IMAGIN. Lower extremity CT showing subcutaneous emphysema and swelling involving the hindfoot soft tissues of the left foot about with a cellulitis/neck trachea fasciitis without evidence of osteomyelitis. 2. Chest x-ray showing no focal consolidation. PRIMARY DIAGNOSIS: 1. Necrotizing soft tissue infection of the left lower extremity. 2. Acute kidney injury. SECONDARY DIAGNOSES: 1. Type 2 diabetes mellitus. 2. Hypertension. 3. Hyperlipidemia. 4. Coronary artery disease. DISCHARGE MEDICATIONS: 1. Levaquin 750 mg p.o. q. day for total of 14 days. 2. Norvasc as 5 mg p.o. q. day. 3. Lipitor 20 mg p.o. q. day. 4. Bolton 5/325 1-2 tabs p.o. q.4 hours as needed for pain. 6. Lisinopril 20 mg p.o. q. day. 7. Levemir 17 units in the morning and 15 units at night. 8. Tylenol 650 mg p.o. q.6 hours as needed. 9. Plavix 75 mg p.o. q. day. 10. Gabapentin 300 mg p.o. q.a.m. and 600 mg p.o. q.p.m. 11. Trazodone 50 mg p.o. at bedtime as needed for insomnia. DISCONTINUED MEDICATIONS: None. HISTORY OF PRESENT ILLNESS: Patient is a 57-year-old male who presented to the ER for evaluation of left lower extremity wound at the urgency of his white after began to become malodorous. He presented to the [place] ER initially and was transferred to [place] after a concern of fasciitis. Upon evaluation of left heel diabetic foot ulcer, apparently, the patient had been initially evaluated 6 months prior and was started on oral Bactrim and Keflex at this time; however, he was also referred to wound clinic in the area, where he was treated with some sort of topical application at this time. He has since been caring for his wound at home; however, as it became worse than how it is, they presented to the ER for evaluation. CT scan showing emphysematous infection in the left foot. Imaging was reviewed by Cardiovascular Surgery, Dr. Solorio was consulted in the ER and the patient was taken initially for a left ankle guillotine amputation followed by left BKA the following day. Patient upon admission started on vancomycin, meropenem, vancomycin, and clindamycin for coverage for possible necrotizing fasciitis. Patient's white count down trended from initial being 28.9 to 2.7 on day of discharge. The patient remained afebrile throughout entire hospitalization. Patient did have elevated blood pressures above 180 systolic that were asymptomatic. Patient was started on 5 mg of Norvasc and lisinopril was increased from 10 mg to 20. The patient's blood pressure responded and was at 133 systolic, 75 diastolic at time of discharge. Patient's pain was controlled on p.o. pain medications, but after being evaluated by PT, OT and felt to be a candidate for rehabilitation. He was accepted for inpatient rehab with [facility] in [place], [place]. DISPOSITION: Stable. DISCHARGE INSTRUCTIONS: 1. Location: Inpatient rehabilitation [facility] in [place], [place]. 2. Follow up with primary care provider in 7 to 10 days. 3. Activity: Orthopedic limits. MTDD
== END 2017-12-12 22:06 | DRG 853 ==
LOC: ERS 17:22 → IMCU/EMU 22:23 → SURG B 12-09 17:45
PROVIDERS: ADMIT Emergency Medicine; ATTEND Emergency Medicine
PROC: 0Y6N0Z0 Detachment at Left Foot, Complete, Open Approach (ICD-10-PCS; principal; 2017-12-09)
PROC: 0Y6J0Z1 Detachment at Left Lower Leg, High, Open Approach (ICD-10-PCS; 2017-12-10)
DX: A41.9 Sepsis, unspecified organism (principal); M72.6 Necrotizing fasciitis; I96 Gangrene, not elsewhere classified; N17.9 Acute kidney failure, unspecified; E87.1 Hypo-osmolality and hyponatremia; L03.116 Cellulitis of left lower limb; E11.42 Type 2 diabetes mellitus with diabetic polyneuropathy; E11.621 Type 2 diabetes mellitus with foot ulcer; E11.52 Type 2 diabetes mellitus with diabetic peripheral angiopathy with gangrene; L97.429 Non-pressure chronic ulcer of left heel and midfoot with unspecified severity; E11.65 Type 2 diabetes mellitus with hyperglycemia; Z79.4 Long term (current) use of insulin; E78.5 Hyperlipidemia, unspecified; I10 Essential (primary) hypertension; Z87.891 Personal history of nicotine dependence; I25.10 Atherosclerotic heart disease of native coronary artery without angina pectoris
CPT/HCPCS: 36415; 36416; 71045; 80048; 80053; 80202; 82550; 83605; 85025; 85049; 85300; 85362; 85379; 85384; 85610; 85652; 85730; 86140; 87040; 87070; 87077; 87186; 87205; 88307; 88311; 93005; 96361; 96365; 96375; A4216; G8978-GP-CL; G8978-GP-CM; G8979-GP-CK; G8979-GP-CL; G8987-GO-CL; G8988-GO-CJ; J0360; J1815; J1885; J2001; J2185; J2250; J2270; J2370; J2550; J2704; J3010; J3370; J3490; J7050